=== PATIENT | male | born 1970 | race Hispanic/Latino ===

== ENCOUNTER 2018-04-29 18:06 | Emergency (ER) | payer SELFPAY ==
[2018-04-29] MEDS ORDERED: ONDANSETRON ODT 8 MG TAB SL ONE (18:16)
[2018-04-29] MEDS ORDERED: ALUM & MAG HYDROX-SIMETHICONE 30 ML, LIDOCAINE VISCOUS 2% 15 ML PO ONE ×2 (18:16)
[2018-04-29 18:22] VITALS: TEMP 97.4; O2SAT 99
[2018-04-29] MEDS ORDERED: LIDOCAINE HCL 2% (MOUTH-THROAT) 15 ML UD ONE (18:23)
[2018-04-29] MEDS ORDERED: ALUM & MAG HYDROX-SIMETHICONE 30 ML UD ONE (18:23)
--- NOTE | 2018-04-29 18:58 | RAD ---
EXAM DESCRIPTION: Abdomen Series CLINICAL HISTORY: intermittent epigastric pain 3 months COMPARISON: None FINDINGS: Frontal view of the chest and supine and upright images of the abdomen were submitted. There is mild bilateral pulmonary edema. There is probable consolidation in the mid left lung. Moderate stool is in the colon. Cardiac silhouette is within normal limits. There is no free air in the abdomen. There is no evidence of bowel obstruction. IMPRESSION: Left lung consolidation. Moderate stool. Electronically signed by: Lewis Gamez 04/29/2018 6:56 PM [facility]
[2018-04-29] MEDS ORDERED: SUCRALFATE 1 GM/10 ML 1 GM UD PO ONE (20:26)
[2018-04-29] MEDS ORDERED: levoFLOXacin 500 MG TAB PO ONE (20:26)
[2018-04-29 20:51] VITALS: BP 117/76
--- NOTE | 2018-04-29 21:05 | ED.PDOC ---
History of Present Illness - General Chief Complaint: Abdominal Pain Stated Complaint: epigastric pain Time Seen by Provider: 04/29/18 18:13 Source: patient Exam Limitations: no limitations - History of Present Illness Initial Comments: The patient a 47-year-old male presenting to emergency room secondary to a feeling of epigastric pain that's been worsening over the last couple of weeks. He has a feeling of fullness and bloating. No definite fevers. Mild constipation. A week or so ago he had a productive cough. No syncope. No chest pain. No shortness of breath. No vomiting. He already takes Prilosec. Timing/Duration: unsure Severity: moderate Improving Factors: nothing Worsening Factors: nothing Associated Symptoms: cough, malaise Allergies/Adverse Reactions: Allergies Penicillins Adverse Reaction (Verified 12/16/14 15:06) Home Medications: Ambulatory Orders Omeprazole Magnesium [Prilosec Otc] 20 mg PO DAILY 04/29/18 Sucralfate Tab [Carafate Tab] 1 gm PO QID #120 tab 04/29/18 levoFLOXacin [Levaquin] 500 mg PO DAILY #7 tab 04/29/18 Review of Systems - Review of Systems Constitutional: States: malaise EENTM: States: no symptoms reported Respiratory: States: cough Cardiology: States: no symptoms reported Gastrointestinal/Abdominal: States: abdominal pain, constipation, nausea Genitourinary: States: no symptoms reported Musculoskeletal: States: no symptoms reported Skin: States: no symptoms reported Neurological: States: no symptoms reported Endocrine: States: no symptoms reported All other Systems: No Change from Baseline Past Medical History (General) - Patient Medical History Hx Stroke: No Hx Asthma: No Hx Cardiac Disorders: No Hx Congestive Heart Failure: No Hx Hypertension: No Hx Diabetes: No Hx MRSA: Yes - Blood,Skin 2007; Skin 2008 MRSA Source:: Blood Surgical History: no surgical history - Vaccination History Hx Influenza Vaccination: No - Social History Hx Tobacco Use: Yes Hx Chewing Tobacco Use: Yes Hx Alcohol Use: Yes Hx Substance Use: No Hx Substance Use Treatment: No Hx Depression: No Family Medical History - Family History Mother Family History: Unknown Living Status: Unknown Hx Family Diabetes: Yes - of Pancreas Cancer Physical Exam - Physical Exam General Appearance: Alert, Comfortable, No apparent distress Eye Exam: bilateral normal Ears, Nose, Throat: hearing grossly normal, normal ENT inspection, normal pharynx Neck: full range of motion, supple, normal inspection Respiratory: lungs clear, normal breath sounds, no respiratory distress, no accessory muscle use Cardiovascular/Chest: normal peripheral pulses, regular rate, rhythm, no edema Peripheral Pulses: radial,right: 2+, radial,left: 2+, dorsalis pedis,right: 2+, dorsalis pedis,left: 2+ Gastrointestinal/Abdominal: soft, other - mild epigastric discomfort palpation. No rebound or peritoneal signs. Rectal Exam: deferred Back Exam: no CVA tenderness, no vertebral tenderness Extremity: non-tender, normal inspection, no pedal edema, normal capillary refill Neurologic: machine wedger II-XII nml as tested, alert, normal mood/affect, oriented x 3 Skin Exam: normal color Comments: Vital Signs - 24 hr 04/29/18 04/29/18 18:19 20:50 Temperature 97.4 F L Pulse Rate [ 69 72 Right Brachial] Respiratory 16 18 Rate Blood Pressure 138/81 117/76 [Right Arm] O2 Sat by Pulse 99 99 Oximetry Progress - Progress Progress: 04/29/18 21:05 the patient is a 47-year-old male presenting to the emergency room with what appears to be a left midlung pneumonia along with constipation and gastritis. For the pneumonia the patient is going to be placed on Levaquin 500 milligrams daily for 7 days. For the gastritis we are going to add Carafate 1 g 4 times daily for the next month. For the constipation the patient needs to crab picker and take MiraLAX 17 g daily with a full glass of water at a different time of day than he takes his other medications. He is to follow-up with his primary care doctor in 2 weeks for repeat blood work and a repeat chest x-ray to make sure that the problem is clearing. White blood cell count is 11,000 today. ER warnings were given. - Results/Orders Results/Orders: Laboratory Tests 04/29/18 04/29/18 19:15 19:15 WBC 11.4 H RBC 5.23 Hgb 15.4 Hct 46.2 MCV 88.3 MCH 29.5 MCHC 33.5 RDW 13.9 Plt Count 228 MPV 8.1 Absolute Neuts (auto) 6.30 Absolute Lymphs (auto) 3.60 H Absolute Monos (auto) 1.20 H Absolute Eos (auto) 0.20 Absolute Basos (auto) 0.00 Neutrophils % [employer] Neutrophils % (Manual) 66.0 Lymphocytes % [employer] Officer Lymphocytes % (Manual) 30.0 Monocytes % [employer] Officer Monocytes % (Manual) 0.0 Eosinophils % [employer] Officer Basophils % [employer] Officer Band Neutrophils 2.0 Eosinophils 2.0 Platelet Estimate Normal Sodium 136 Potassium 3.4 L Chloride 104 Carbon Dioxide 26 Anion Gap 9.4 L BUN 23 H Creatinine 0.93 BUN/Creatinine Ratio 24.7 H Random Glucose 98 Serum Osmolality 275.6 Calcium 8.2 L Total Bilirubin 0.5 AST 25 ALT 49 Alkaline Phosphatase 109 Creatine Kinase 62 CK-MB (CK-2) 1.5 CK-MB (CK-2) % Not Reportable Troponin I < 0.02 B-Natriuretic Peptide 7.0 Serum Total Protein 6.4 Albumin 3.7 Globulin 2.7 Albumin/Globulin Ratio 1.4 chest x-ray shows a significant left midlung infiltrate. Rapid flu is negative. Abdominal x-ray shows significant constipation. Departure - Departure Clinical Impression: Gastritis Constipation Qualifiers: Constipation type: unspecified constipation type Qualified Code(s): K59.00 - Constipation, unspecified Pneumonia Qualifiers: Pneumonia type: due to unspecified organism Laterality: left Lung location: unspecified part of lung Qualified Code(s): J18.9 - Pneumonia, unspecified organism Disposition: Discharge to Home or Self Care Condition: Fair Departure Forms: ED Discharge - Pt. Copy, Patient Portal Self Enrollment Instructions: Gastritis (DC), Constipation, Adult (DC), Pneumonia in Adults Diet: regular diet - High-fiber Activity: increase activity as tolerated Referrals: Bernardo Mazariegos MD [Primary Care Provider] - 1-2 Weeks Prescriptions: levoFLOXacin [Levaquin] 500 mg PO DAILY #7 tab Sucralfate Tab [Carafate Tab] 1 gm PO QID #120 tab Home Medications: Ambulatory Orders Omeprazole Magnesium [Prilosec Otc] 20 mg PO DAILY 04/29/18 Sucralfate Tab [Carafate Tab] 1 gm PO QID #120 tab 04/29/18 levoFLOXacin [Levaquin] 500 mg PO DAILY #7 tab 04/29/18 Additional Instructions: the patient is a 47-year-old male presenting to the emergency room with what appears to be a left midlung pneumonia along with constipation and gastritis. For the pneumonia the patient is going to be placed on Levaquin 500 milligrams daily for 7 days. For the gastritis we are going to add Carafate 1 g 4 times daily for the next month. For the constipation the patient needs to crab picker and take MiraLAX 17 g daily with a full glass of water at a different time of day than he takes his other medications. He is to follow-up with his primary care doctor in 2 weeks for repeat blood work and a repeat chest x-ray to make sure that the problem is clearing. White blood cell count is 11,000 today. ER warnings were given.
== END 2018-04-29 21:19 | disposition home or self-care (01) ==
LOC: ER 18:06
DX: J18.9 Pneumonia, unspecified organism (principal); K29.70 Gastritis, unspecified, without bleeding; K59.00 Constipation, unspecified; Z87.891 Personal history of nicotine dependence; Z85.828 Personal history of other malignant neoplasm of skin; Z85.9 Personal history of malignant neoplasm, unspecified; Z88.0 Allergy status to penicillin; Z79.899 Other long term (current) drug therapy

== ENCOUNTER 2018-05-02 15:38 | Emergency (ER) | payer SELFPAY ==
[2018-05-02 16:08] VITALS: TEMP 101.7
--- NOTE | 2018-05-02 16:29 | ED.PDOC ---
History of Present Illness - General Chief Complaint: General Stated Complaint: Sore throat, cough, bodyaches Time Seen by Provider: 05/02/18 16:22 - History of Present Illness Initial Comments: Dean Oliveira 47 y/o male stated that he had intermittent non radiating dull mid-abdominal pains for the last 2 weeks not aggravated by food intake but feels bloated after a meal .He has also achy throat and body aches today.Stated has normal bowel movement,no dysuria,no nausea/vomiting.Denies chronic medical problem.Seen 4 days ago was diagnosed with gastritis and mid lung field PNA.He was treated oupatient with Levaquin,Carafate and prilosec Timing/Duration: other - 2 weeks Severity: moderate Improving Factors: nothing Worsening Factors: eating Associated Symptoms: denies symptoms Allergies/Adverse Reactions: Allergies Penicillins Adverse Reaction (Verified 12/16/14 15:06) Home Medications: Ambulatory Orders Omeprazole Magnesium [Prilosec Otc] 20 mg PO DAILY 04/29/18 Sucralfate Tab [Carafate Tab] 1 gm PO QID #120 tab 04/29/18 levoFLOXacin [Levaquin] 500 mg PO DAILY #7 tab 04/29/18 Oseltamivir Capsule [Tamiflu] 75 mg PO BID 5 Days #10 capsule 05/02/18 Review of Systems - Review of Systems Constitutional: States: no symptoms reported EENTM: States: no symptoms reported Respiratory: States: no symptoms reported Cardiology: States: no symptoms reported Gastrointestinal/Abdominal: States: see HPI Genitourinary: States: no symptoms reported Musculoskeletal: States: no symptoms reported Skin: States: no symptoms reported Neurological: States: no symptoms reported Past Medical History (General) - Patient Medical History Hx Stroke: No Hx Asthma: No Hx Cardiac Disorders: No Hx Congestive Heart Failure: No Hx Hypertension: No Hx Diabetes: No Hx Gastroesophageal Reflux: Yes Hx MRSA: Yes - Blood,Skin 2007; Skin 2008 MRSA Source:: Blood Surgical History: other - Vaccination History Hx Tetanus, Diphtheria Vaccination: No Hx Influenza Vaccination: No Hx Pneumococcal Vaccination: No - Social History Hx Tobacco Use: Yes Hx Chewing Tobacco Use: Yes Hx Alcohol Use: Yes Hx Substance Use: No Hx Substance Use Treatment: No Hx Depression: No Family Medical History - Family History Mother Family History: Unknown Living Status: Hx Family Diabetes: Yes - of Pancreas Cancer Hx Family;Other: PANCREATIC CA Physical Exam - Physical Exam General Appearance: Alert, Comfortable, No apparent distress Eye Exam: bilateral normal Ears, Nose, Throat: hearing grossly normal, normal ENT inspection, pharyngeal erythema Neck: non-tender, full range of motion, supple Respiratory: chest non-tender, lungs clear, normal breath sounds, no respiratory distress Cardiovascular/Chest: normal peripheral pulses, regular rate, rhythm, no murmur Peripheral Pulses: radial,right: 2+, radial,left: 2+ Gastrointestinal/Abdominal: normal bowel sounds, soft, tenderness - mid abdomen no peritoneal signs Back Exam: no CVA tenderness, no vertebral tenderness Extremity: non-tender, normal inspection, no pedal edema, no calf tenderness Neurologic: alert, oriented x 3 Skin Exam: normal color, warm/dry Progress - Progress Progress: 05/02/18 16:40 Vital Signs - 8 hr 05/02/18 16:06 Temperature 101.7 F H Pulse Rate [ 126 H left hand] Respiratory 18 Rate Blood Pressure 134/81 [Left Arm] O2 Sat by Pulse 95 Oximetry - Results/Orders Results/Orders: 05/02/18 16:31 Hold Metformin x 48Hrs [id number] 05/02/18 16:45 CARDIAC PANEL,ER Stat HEPATIC FUNCTION PANEL Stat LIPASE Stat 05/02/18 16:48 STREP A SCREEN CULTURE Stat Laboratory Results - last 24 hr 05/02/18 05/02/18 05/02/18 16:45 16:48 16:56 WBC 8.2 RBC 5.45 Hgb 16.3 Hct 48.0 MCV 88.0 MCH 29.9 MCHC 33.9 RDW 13.5 Plt Count 177 MPV 7.7 Absolute Neuts (auto) 6.90 H Absolute Lymphs (auto) 0.40 L Absolute Monos (auto) 0.80 Absolute Eos (auto) 0.00 Absolute Basos (auto) 0.00 Neutrophils % 84.3 H Lymphocytes % 5.3 L Monocytes % 9.8 H Eosinophils % 0.2 L Basophils % 0.4 PT 9.7 INR 0.97 PTT (SP) 26.3 Sodium 134 L Potassium 3.8 Chloride 100 L Carbon Dioxide 27 Anion Gap 10.8 L BUN 10 Creatinine 1.03 BUN/Creatinine Ratio 9.7 L Random Glucose 121 H Serum Osmolality 268.5 L Calcium 8.7 Magnesium 2.0 Total Bilirubin 0.6 Direct Bilirubin < 0.1 Indirect Bilirubin 0.5 AST 24 ALT 43 Alkaline Phosphatase 101 Creatine Kinase 43 CK-MB (CK-2) 0.3 Troponin I < 0.02 Serum Total Protein 7.4 Albumin 4.1 Lipase 34 Urine Color Yellow Urine Appearance Clear Urine pH 7.5 Ur Specific [place] 1.010 Urine Protein Negative Urine Glucose (UA) Negative Urine Ketones Negative Urine Blood Small H Urine Nitrite Negative Urine Bilirubin Negative Urine Urobilinogen 0.2 Ur Leukocyte Esterase Negative Urine RBC 0-1 Urine WBC 0 Ur Epithelial Cells 0 Urine Bacteria 0 Group A Strep Rapid Negative Flu swab-positive;Discuss test result with patient including negative CT ab/pelv is that he needs to follow up with his primary [place] for GI speacialist referral Departure - Departure Clinical Impression: Influenza A Abdominal pain Qualifiers: Abdominal location: upper abdomen, unspecified Qualified Code(s): R10.10 - Upper abdominal pain, unspecified Time of Disposition: 17:50 Disposition: Discharge to Home or Self Care Condition: Fair Departure Forms: ED Discharge - Pt. Copy, ED Discharge - Work Release, Patient Portal Self Enrollment Instructions: Flu, Adult (DC), Flu, [place] Diet, Gastritis (DC), Gastritis Referrals: Bernardo Mazariegos MD [Primary Care Provider] - 1-2 Weeks Prescriptions: Oseltamivir Capsule [Tamiflu] 75 mg PO BID 5 Days #10 capsule Home Medications: Ambulatory Orders Omeprazole Magnesium [Prilosec Otc] 20 mg PO DAILY 04/29/18 Sucralfate Tab [Carafate Tab] 1 gm PO QID #120 tab 04/29/18 levoFLOXacin [Levaquin] 500 mg PO DAILY #7 tab 04/29/18 Oseltamivir Capsule [Tamiflu] 75 mg PO BID 5 Days #10 capsule 05/02/18 Additional Instructions: Continue with all home medications;follow up with fausto Mendez 03 May 2018 for referral to Paraprofessional Interpreter;Return to emergency room as needed;Tylenol 500 mg every 6 hours for fever as needed
--- NOTE | 2018-05-02 17:12 | CT ---
EXAM: Abdomen/Pelvis w/Contrast CLINICAL INDICATION: 47-year-old male with generalized abdominal pain. COMPARISON: Normal. EXAMINATION: CT of the abdomen and pelvis was performed following intravenous administration of contrast. Oral contrast was not administered. Multiplanar reformatted images were provided. This exam was performed according to our departmental dose optimization program which includes use of automated exposure control, adjustment of the mA and/or kV according to patient size and/or use of iterative reconstruction technique. FINDINGS: Chest: Evaluation through the lung bases reveals no focal opacity, pleural effusion or pneumothorax. Heart size is within normal limits. No pericardial effusion. Abdomen and pelvis: Hypoattenuating lesion present within the RIGHT lobe liver with indeterminate Hounsfield values overall hypoattenuating contents with circumscribed margin measures up to 3 cm suggestive of a hepatic cyst, however further correlation with MRI may be considered. The liver, gallbladder, pancreas, spleen, bilateral kidneys and bilateral adrenal glands are within normal limits. The vessels are patent and normal in caliber. No abdominopelvic lymph nodes are noted to be pathologically enlarged by CT measurement criteria. The bowel is within normal limits without abnormal bowel wall thickness or bowel dilation. No free air. No free abdominopelvic fluid collections. The appendix is within normal limits. The osseous structures are within normal limits. IMPRESSION: 1. No specific acute intra-abdominal findings are noted to suggest etiology of the patient's abdominal pain. 2. 3 cm indeterminate, although suspected simple RIGHT liver lobe hepatic cyst. Further evaluation with MRI may be considered. Electronically signed by: Muriel Aguirre MD 05/02/2018 5:10 PM [employer]
[2018-05-02 17:39] VITALS: BP 138/83; O2SAT 96
[2018-05-02] MEDS ORDERED: OSELTAMIVIR 75 MG CAP PO ONE (17:46)
== END 2018-05-02 18:07 | disposition home or self-care (01) ==
LOC: ER 15:38
DX: J10.1 Influenza due to other identified influenza virus with other respiratory manifestations (principal); R10.10 Upper abdominal pain, unspecified; K21.9 Gastro-esophageal reflux disease without esophagitis; Z88.0 Allergy status to penicillin; Z87.891 Personal history of nicotine dependence